=== PATIENT | male | born 1940 | race Hispanic/Latino ===

== ENCOUNTER 2017-05-29 04:42 | Inpatient (IN) | payer MEDICARE ==
--- NOTE | 2017-05-29 04:47 | C.PDOC ---
History Of Present Illness Patient presents to ER via EMS after having 4-5 tonic clonic seizures since 22: 30. Patient did not want to come in; however, his made him come in. Patient received 2ml ativan IV enroute. Patient is post ictal and has no signs of trauma; Hx is as per family. Time Seen by Provider: 05/29/17 04:46 History Per: Family History/Exam Limitations: no limitations Recent Seizure Activity Began: Hours Ago: (22:30) Number Of Seizures: Multiple Length Of Seizures (Duration): Unknown Quality Of Seizure: Generalized Precipitating Factor(s): Other (Not known) Post-ictal Period: Yes Recent travel outside of the [place]: No Past Medical History Reviewed: Historical Data, Nursing Documentation, Vital Signs Vital Signs: Last Vital Signs Temp 98 F 05/29/17 04:52 Pulse 83 05/29/17 06:06 Resp 17 05/29/17 06:06 BP 137/70 05/29/17 06:06 Pulse Ox 98 05/29/17 06:06 - Medical History PMH: No Chronic Diseases Surgical History: No Surg Hx Family History: States: Unknown Family Hx Review Of Systems Review Of Systems: ROS cannot be obtained secondary to pt's inabilty to answer questions. Physical Exam - Physical Exam Appears: Non-toxic, Other (Lethargic) Skin: Warm, Dry Head: Normacephalic Eye(s): bilateral: Normal Inspection Oral Mucosa: Moist Neck: Trachea Midline, Supple Chest: Symmetrical, No Tenderness Cardiovascular: Rhythm Regular, No Murmur Respiratory: No Rales, No Rhonchi, No Wheezing Gastrointestinal/Abdominal: Soft, No Tenderness Back: No CVA Tenderness Extremity: No Tenderness Extremity: Bilateral: Atraumatic Pulses: Left Dorsalis Pedis: Normal, Right Dorsalis Pedis: Normal Neurological/Psych: Other (Post ictal) Gait: Unable To Assess ED Course And Treatment - Laboratory Results Result Diagrams: 05/29/17 05:45 05/29/17 05:45 Disposition Discussed With : Kathy Chan Comment: accepted the pt on her service and took over the care at 6:29AM Doctor Will See Patient In The: Hospital Counseled Patient/Family Regarding: Studies Performed, Diagnosis - Disposition Disposition: HOSPITALIZED Disposition Time: 04:47 Condition: FAIR - POA Present On Arrival: Poor Glycemic Control - Clinical Impression Clinical Impression: Tonic-clonic seizure - Scribe Statement The provider has reviewed the documentation as recorded by the Scribe Dwain Carson All medical record entries made by the Scribe were at my direction and personally dictated by me. I have reviewed the chart and agree that the record accurately reflects my personal performance of the history, physical exam, medical decision making, and the department course for this patient. I have also personally directed, reviewed, and agree with the discharge instructions and disposition. Decision To Admit - Pt Status Changed To: Hospital Disposition Of: Inpatient - Admit Certification Admit to Inpatient:: After my assessment, the patient will require hospitalization for at least two midnights. This is because of the severity of symptoms shown, intensity of services needed, and/or the medical risk in this patient being treated as an outpatient. - InPatient: Physician Admission Certification: I certify that this patient requires 2 or more midnights of care for the following reason:: After my assessment, the patient will require hospitalization for at least two midnights. This is because of the severity of symptoms shown, intensity of services needed, and/or the medical risk in this patient being treated as an outpatient. - . Bed Request Type: Regular Admitting Physician: Kathy Chan Patient Diagnosis: Tonic-clonic seizure
[2017-05-29] MEDS ORDERED: Sodium Chloride 0.9% 1,000 ML IV ONE (05:35)
[2017-05-29 05:48] LABS: BASO # 0.3 K/uL (0.0-0.2); BASO % 1.5 % (0.0-2.0); EOS # 0.3 K/uL (0.0-0.7); EOS % 1.7 % (0.0-4.0); HEMATOCRIT 35.6 % (35.0-51.0); LYMPH # 1.9 K/uL (1.0-4.3); MEAN CORPUSCULAR HEMOGLOBIN 29.7 pg (27.0-31.0); MEAN CORPUSCULAR HGB CONC 33.7 g/dL (33.0-37.0); MEAN PLATELET VOLUME 8.2 fL (7.2-11.7); MONO # 1.8 K/uL (0.0-0.8); MONO % 10.1 % (0.0-10.0); NRBC % 0.4 % (0.0-2.0); RED CELL DISTRIBUTION WIDTH 18.2 % (11.5-14.5); WHITE BLOOD COUNT 17.5 K/uL (4.8-10.8)
[2017-05-29 06:17] LABS: ALB/GLOB RATIO 1.5 (1.0-2.1); BILIRUBIN,TOTAL 0.4 mg/dL (0.2-1.3)
[2017-05-29 06:18] LABS: CALCIUM 8.8 mg/dl (8.6-10.4)
[2017-05-29 07:27] LABS: THYROID STIMULATING HORMONE 3.2 mIU/L (0.46-4.68)
[2017-05-29] MEDS ORDERED: levETIRAcetam 1,000 MG in Sodium Chloride 0.9% 100 ML IVPB SCH (07:30)
[2017-05-29 08:00] LABS: FREE T4 0.93 ng/dL (0.78-2.19)
--- NOTE | 2017-05-29 08:15 | RAD ---
PROCEDURE: CHEST RADIOGRAPH, 1 VIEW HISTORY: Seizure COMPARISON: None available. FINDINGS: LUNGS: Mild to moderate venous congestion with patchy bibasilar airspace opacities and question trace left pleural effusion. PLEURA: No pneumothorax or pleural fluid seen. CARDIOVASCULAR: Cardiomegaly. Calcification at the aortic knob. OSSEOUS STRUCTURES: No significant abnormalities. VISUALIZED UPPER ABDOMEN: Normal. OTHER FINDINGS: None. IMPRESSION: Mild to moderate venous congestion with patchy bibasilar airspace opacities and question trace left pleural effusion.
--- NOTE | 2017-05-29 08:41 | CT ---
PROCEDURE: CT HEAD WITHOUT CONTRAST. HISTORY: seizure activity COMPARISON: None available. TECHNIQUE: Axial computed tomography images were obtained through the head/brain without intravenous contrast. Radiation dose: Total exam DLP = nine hundred seventy mGy-cm. This CT exam was performed using one or more of the following dose reduction techniques: Automated exposure control, adjustment of the mA and/or kV according to patient size, and/or use of iterative reconstruction technique. FINDINGS: HEMORRHAGE: No intracranial hemorrhage. BRAIN: No mass effect or edema. Scattered focal lucencies in the subcortical and periventricular white matter suggestive for chronic microvascular ischemic change. Confluent low attenuation within the right frontal subcortical white matter which may represent encephalomalacia from chronic infarct. Small hypodensities in the bilateral cerebellum suggestive for chronic infarcts. VENTRICLES: Unremarkable. No hydrocephalus. CALVARIUM: Unremarkable. PARANASAL SINUSES: Unremarkable as visualized. No significant inflammatory changes. MASTOID AIR CELLS: Unremarkable as visualized. No inflammatory changes. OTHER FINDINGS: None. IMPRESSION: Chronic microvascular ischemic change. 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 If focal neurologic deficit persists, consider MRI.
[2017-05-29] MEDS ORDERED: LEVETIRACETAM 1000 MG PO SCH (10:00)
[2017-05-29] MEDS ORDERED: cefTRIAXone 2 GM IN NS 2 GM/100 ML BAG IVPB SCH (11:00)
[2017-05-29 11:14] LABS: RBC URINE 1 /hpf (0-3); URINE BACTERIA RARE (<OCC); URINE BILIRUBIN NEGATIVE (NEGATIVE); URINE BLOOD 2+ (NEGATIVE); URINE COLOR Straw (YELLOW); URINE GLUCOSE (UA) NORMAL (Normal); URINE KETONE NEGATIVE (NEGATIVE); URINE LEUKOCYTE ESTERASE NEG Leu/uL (Negative); URINE PROTEIN 1+ mg/dL (NEGATIVE); URINE URIC ACID CRYSTALS FEW /hpf (<OCC); URINE UROBILINOGEN NORMAL mg/dL (0.2-1.0); WBC URINE 1 /hpf (0-5)
[2017-05-29] MEDS ORDERED: Vancomycin 1 gm/NS 200 ml 1 GM/200 ML BAG IVPB ONE (13:00)
--- NOTE | 2017-05-29 16:09 | CP.PCM.HP ---
History of Present Illness - History of Present Illness History of Present Illness: pt admited for multiple clonic tonic seizers Present on Admission - Present on Admission Any Indicators Present on Admission: No Review of Systems - Review of Systems Systems not reviewed;Unavailable: Acuity of Condition - Constitutional Constitutional: Daytime Sleepiness - EENT Eyes: As Per HPI Ears: As Per HPI Nose/Mouth/Throat: As Per HPI - Cardiovascular Cardiovascular: As Per HPI - Respiratory Respiratory: As Per HPI, Dyspnea on Exertion - Gastrointestinal Gastrointestinal: As Per HPI - Genitourinary Genitourinary: As Per HPI - Reproductive: Male Reproductive:Male: As Per HPI - Musculoskeletal Musculoskeletal: As Per HPI - Integumentary Integumentary: As Per HPI - Neurological Neurological: Other Past Patient History - Infectious Disease Hx of Infectious Diseases: None - Past Medical History & Family History Past Medical History?: Yes - Past Social History Smoking Status: Never Smoked - CARDIAC Hx Cardiac Disorders: Yes Hx Hypercholesterolemia: Yes Hx Hypertension: Yes - PULMONARY Hx Respiratory Disorders: No - NEUROLOGICAL Hx Neurological Disorder: Yes Hx Seizures: Yes - HEENT Hx HEENT Problems: No - RENAL Hx Chronic Kidney Disease: No - ENDOCRINE/METABOLIC Hx Endocrine Disorders: No - HEMATOLOGICAL/ONCOLOGICAL Hx Blood Disorders: No - INTEGUMENTARY Hx Dermatological Problems: No - MUSCULOSKELETAL/RHEUMATOLOGICAL Hx Musculoskeletal Disorders: No Hx Falls: No - GASTROINTESTINAL Hx Gastrointestinal Disorders: No - GENITOURINARY/GYNECOLOGICAL Hx Genitourinary Disorders: No - PSYCHIATRIC Hx Psychophysiologic Disorder: No Hx Substance Use: No - SURGICAL HISTORY Hx Surgeries: No - ANESTHESIA Hx Anesthesia: No Meds Allergies/Adverse Reactions: Allergies Allergy/AdvReac Type Severity Reaction Status Date / Time No Known Allergies Allergy Unverified 05/29/17 04:49 Physical Exam - Constitutional Appears: Non-toxic - Head Exam Head Exam: NORMAL INSPECTION - Eye Exam Eye Exam: Normal appearance Pupil Exam: NORMAL ACCOMODATION - Neck Exam Neck exam: Positive for: Full Rom - Respiratory Exam Respiratory Exam: Clear to Auscultation Bilateral, NORMAL BREATHING PATTERN - Cardiovascular Exam Cardiovascular Exam: REGULAR RHYTHM - GI/Abdominal Exam GI & Abdominal Exam: Soft - Rectal Exam Rectal Exam: NORMAL INSPECTION Results - Vital Signs Recent Vital Signs: Last Vital Signs Temp 98.5 F 05/29/17 15:20 Pulse 74 05/29/17 15:20 Resp 20 05/29/17 15:20 BP 124/71 05/29/17 15:20 Pulse Ox 97 05/29/17 15:20 - Labs Result Diagrams: 05/29/17 05:45 05/29/17 05:45 Labs: Laboratory Results - last 24 hr 05/29/17 05/29/17 05/29/17 06:37 07:15 10:52 Total Creatine Kinase 598 H CK-MB (Mass) 10.9 H Troponin I, Quant 0.0230 NT-Pro-B Natriuret Pep 275 Free T4 0.93 TSH 3rd Generation 3.20 Urine Color Straw Urine Clarity Hazy Urine pH 5.0 Ur Specific [place] 1.011 Urine Protein 1+ H Urine Glucose (UA) Normal Urine Ketones Negative Urine Blood 2+ H Urine Nitrate Negative Urine Bilirubin Negative Urine Urobilinogen Normal Ur Leukocyte Esterase Neg Urine WBC (Auto) 1 Urine RBC (Auto) 1 Uric Acid Crystals Few H Urine Bacteria Rare Assessment & Plan - Assessment and Plan (Free Text) Assessment: ac seizers lecocytosis dm Decision To Admit - Admit Certification Admit to Inpatient:: diann and consutation - . Bed Request Type: Telemetry
--- NOTE | 2017-05-29 17:09 | CON ---
DATE: 05/29/2017 ATTENDING PHYSICIAN: Dr. Kathy Chan. REASON FOR CONSULTATION: Recurrent seizures. HISTORY OF PRESENT ILLNESS: The patient is a 76-year-old right-handed gentleman with past medical history of seizure disorder, hyperlipidemia, hypertension. The patient was admitted because of recurrent episodes of seizure, generalized tonic-clonic seizure. The patient had at least 4 seizures prior to admission and the patient has been on Keppra 500 mg every 12 hours and the patient's last seizure was few months ago. The patient has no recollection when was prior seizure. The patient does not recall who is his neurologist is. The patient states that he is at [facility]. The patient is now able to follow commands, unable to give detailed history, history is taken from the chart. At this admission, the patient was given initially 2 mg of Ativan and no recurrent seizures. The patient was found to have high white blood cell 17.5. PAST MEDICAL HISTORY: Hypertension, hyperlipidemia, seizure disorder. PAST SURGICAL HISTORY: The patient denies major surgeries. FAMILY HISTORY: Noncontributory. MEDICATIONS: Lorazepam p.r.n., rosuvastatin, Keppra 500 mg b.i.d., amlodipine, ceftriaxone. REVIEW OF SYSTEMS: As per H and P and ER note reviewed. PHYSICAL EXAMINATION: VITAL SIGNS: Her blood pressure 155/86, pulse 86, respirations 20, temperature 98.2 and temperature at admission was 98. MENTAL STATUS EXAMINATION: The patient is alert, awake, and oriented to time and place and partially to person. Slow mental processing, decreased attention span, short-term memory, able to follow 2-step commands, unable to follow 3-step commands. CRANIAL NERVES: Pupils 3 mm bilaterally active. No facial asymmetry. No field defect. No nystagmus. No double vision. accessory nerve intact. Tongue midline. Gag intact. MOTOR: Normal tone in upper and lower extremities. No facial drift, no tremors. Right upper extremity, elbow, clipper automatic 5/5. Lower extremities; hip flexion, knee flexion and extension, ankle 5/5. Deep tendon reflexes 1 in upper extremities, absent in bilateral lower extremities. Plantar flexion on both sides. SENSORY: Pinprick, light touch, position intact. Coordination and [id number] intact. Romberg deferred. MRI of the brain consistent with periventricular white matter disease secondary to small vessel ischemic changes in addition to chronic infarct in the right frontal subcortical white matter and bilateral cerebellum. LABORATORY DATA: White blood cells 17.5, red blood cells 4, hemoglobin 12, hematocrit 35.6, neutrophil 75%, lymphocyte 11, mono 10, eosinophil 1.7. Sodium 142, potassium 5, chloride 106, carbon dioxide 21, anion gap 20, BUN 25, creatinine 1.4. Glomerular filtration rate 60. Her glucose 188. Creatinine kinase 598 secondary to seizures. Urinalysis; urine protein 1+, urine blood 2+, uric acid crystals few, white blood cells 1, red blood cells 1. IMPRESSION: The patient has recurrent breakthrough seizure, most likely secondary to sepsis. Lab workup still in progress. Culture and sensitivity are pending. At this point, the patient is known with history of seizures. The patient had MRI of the brain a year ago. The CAT scan did not reveal acute findings. After reviewing patient's CAT scan of the brain, the patient has frontal infarct on the right side old, this is most likely underlying source for the patient's history of seizure . I will increase Keppra to 750 mg q. 12 hours. Septic workup in progress. Dr. Whitley, Infectious Disease is on the case. Thank you for the consultation and we will follow up with you. Jon Stone MD MTDJaylyn
[2017-05-29] MEDS: cefTRIAXone 2 GM in Sodium Chloride 0.9% 100 ML IVPB SCH (22:52)
[2017-05-30 08:09] LABS: HEMATOCRIT 34.8 % (35.0-51.0); MEAN CELL VOLUME 87.4 fL (80.0-94.0); MEAN CORPUSCULAR HEMOGLOBIN 29.5 pg (27.0-31.0); MEAN CORPUSCULAR HGB CONC 33.7 g/dL (33.0-37.0); MEAN PLATELET VOLUME 8.3 fL (7.2-11.7); RED CELL DISTRIBUTION WIDTH 18.2 % (11.5-14.5); WHITE BLOOD COUNT 13.8 K/uL (4.8-10.8)
[2017-05-30 08:38] LABS: FREE T4 0.83 ng/dL (0.78-2.19)
[2017-05-30 08:52] LABS: THYROID STIMULATING HORMONE 0.98 mIU/L (0.46-4.68)
--- NOTE | 2017-05-30 11:15 | CP.PCM.PN ---
Subjective - Date & Time of Evaluation Date of Evaluation: 05/30/17 Time of Evaluation: 11:13 - Subjective Subjective: feels beter today Objective - Vital Signs/Intake and Output Vital Signs (last 24 hours): Temp Pulse Resp BP Pulse Ox 98.4 F 63 20 123/71 96 05/30/17 08:25 05/30/17 08:25 05/30/17 08:25 05/30/17 08:25 05/30/17 08:25 Intake and Output: 05/30/17 05/30/17 06:59 18:59 Intake Total 830 Output Total 700 Balance 130 - Medications Medications: Current Medications Amlodipine Besylate (Norvasc) 10 mg PO DAILY [facility] Last Admin: 05/30/17 10:00 Dose: 10 mg Furosemide (Lasix) 40 mg IVP DAILY [facility] Ceftriaxone Sodium 2 gm/ (Sodium Chloride) 100 mls @ 200 mls/hr IVPB Q12H [facility] Last Admin: 05/29/17 22:52 Dose: 200 mls/hr Levetiracetam (Keppra) 750 mg PO BID [facility] Last Admin: 05/30/17 10:00 Dose: 750 mg Lorazepam (Ativan) 1 mg IVP Q6H PRN PRN Reason: Anxiety Metformin HCl (Glucophage Xr) 500 mg PO DAILY [facility] Last Admin: 05/30/17 10:00 Dose: 500 mg Rosuvastatin Calcium (Crestor) 5 mg PO [facility] Last Admin: 05/29/17 21:28 Dose: 5 mg Spironolactone (Aldactone) 25 mg PO DAILY [facility] - Labs Labs: 05/30/17 08:00 - Constitutional Appears: Non-toxic - Head Exam Head Exam: NORMAL INSPECTION - Eye Exam Eye Exam: Normal appearance Pupil Exam: NORMAL ACCOMODATION - ENT Exam ENT Exam: Mucous Membranes Moist, Normal Exam - Neck Exam Neck Exam: Normal Inspection - Respiratory Exam Respiratory Exam: Decreased Breath Sounds - Cardiovascular Exam Cardiovascular Exam: REGULAR RHYTHM - GI/Abdominal Exam GI & Abdominal Exam: Normal Bowel Sounds - Rectal Exam Rectal Exam: NORMAL INSPECTION - Exam Exam: NORMAL INSPECTION - Extremities Exam Extremities Exam: Normal Inspection - Back Exam Back Exam: NORMAL INSPECTION - Neurological Exam Neurological Exam: Normal Gait - Psychiatric Exam Psychiatric exam: Normal Affect - Skin Skin Exam: Normal Color Assessment and Plan - Assessment and Plan (Free Text) Assessment: chest congesion posible chf s/p seizers obesith pre diabetic abn ekg Plan: as per orders
[2017-05-30] MEDS: cefTRIAXone 2 GM in Sodium Chloride 0.9% 100 ML IVPB SCH ×2 (12:31→18:26)
--- NOTE | 2017-05-30 13:46 | CP.PCM.CON ---
History of Present Illness - History of Present Illness History of Present Illness: CC: Seizure HPI: 76 year old man with chronic medical conditions 1. Epilepsy 2. HTN 3. Dyslipidemia Came to [facility] for for seizures. Denies any further seizures while in hospital. Review of Systems - Review of Systems All systems: reviewed and no additional remarkable complaints except Past Patient History - Infectious Disease Hx of Infectious Diseases: None - Past Medical History & Family History Past Medical History?: Yes - Past Social History Smoking Status: Never Smoked - CARDIAC Hx Hypercholesterolemia: Yes Hx Hypertension: Yes - PULMONARY Hx Respiratory Disorders: No - NEUROLOGICAL Hx Neurological Disorder: Yes Hx Seizures: Yes - HEENT Hx HEENT Problems: No - RENAL Hx Chronic Kidney Disease: No - ENDOCRINE/METABOLIC Hx Endocrine Disorders: No - HEMATOLOGICAL/ONCOLOGICAL Hx Blood Disorders: No - INTEGUMENTARY Hx Dermatological Problems: No - MUSCULOSKELETAL/RHEUMATOLOGICAL Hx Musculoskeletal Disorders: No Hx Falls: No - GASTROINTESTINAL Hx Gastrointestinal Disorders: No - GENITOURINARY/GYNECOLOGICAL Hx Genitourinary Disorders: No - PSYCHIATRIC Hx Psychophysiologic Disorder: No Hx Substance Use: No - SURGICAL HISTORY Hx Surgeries: No - ANESTHESIA Hx Anesthesia: No Meds Allergies/Adverse Reactions: Allergies Allergy/AdvReac Type Severity Reaction Status Date / Time No Known Allergies Allergy Unverified 05/29/17 04:49 - Medications Medications: Current Medications Amlodipine Besylate (Norvasc) 10 mg PO DAILY [facility] Last Admin: 05/30/17 10:00 Dose: 10 mg Furosemide (Lasix) 40 mg IVP DAILY [facility] Last Admin: 05/30/17 12:29 Dose: 40 mg Ceftriaxone Sodium 2 gm/ (Sodium Chloride) 100 mls @ 200 mls/hr IVPB Q12H [facility] Last Admin: 05/30/17 12:31 Dose: 200 mls/hr Levetiracetam (Keppra) 750 mg PO BID [facility] Last Admin: 05/30/17 10:00 Dose: 750 mg Lorazepam (Ativan) 1 mg IVP Q6H PRN PRN Reason: Anxiety Metformin HCl (Glucophage Xr) 500 mg PO DAILY [facility] Last Admin: 05/30/17 10:00 Dose: 500 mg Rosuvastatin Calcium (Crestor) 5 mg PO HS [facility] Last Admin: 05/29/17 21:28 Dose: 5 mg Spironolactone (Aldactone) 25 mg PO DAILY [facility] Physical Exam - Constitutional Appears: Well, Non-toxic - Eye Exam Eye Exam: PERRL. absent: Scleral icterus - ENT Exam ENT Exam: Mucous Membranes Moist, Normal External Ear Exam - Neck Exam Neck exam: Positive for: Full Rom. Negative for: Lymphadenopathy - Respiratory Exam Respiratory Exam: Clear to Auscultation Bilateral, NORMAL BREATHING PATTERN - Cardiovascular Exam Cardiovascular Exam: REGULAR RHYTHM, +S1, +S2. absent: JVD - GI/Abdominal Exam GI & Abdominal Exam: Normal Bowel Sounds. absent: Organomegaly - Extremities Exam Extremities exam: Negative for: calf tenderness, pedal edema - Neurological Exam Neurological exam: CN II-XII Intact, Oriented x3 - Psychiatric Exam Psychiatric exam: Normal Affect, Normal Mood Results - Vital Signs Recent Vital Signs: Last Vital Signs Temp 98.4 F 05/30/17 08:25 Pulse 64 05/30/17 10:57 Resp 20 05/30/17 08:25 BP 137/71 05/30/17 12:29 Pulse Ox 98 05/30/17 10:57 - Labs Result Diagrams: 05/30/17 08:00 05/29/17 05:45 Labs: Laboratory Results - last 24 hr 05/29/17 05/29/17 05/30/17 16:45 21:01 06:22 WBC RBC Hgb Hct MCV MCH MCHC RDW Plt Count MPV POC Glucose (mg/dL) 91 115 H 126 H Free T4 TSH 3rd Generation 05/30/17 05/30/17 05/30/17 08:00 08:00 11:25 WBC 13.8 H RBC 3.98 L Hgb 11.7 L Hct 34.8 L MCV 87.4 MCH 29.5 MCHC 33.7 RDW 18.2 H Plt Count 467 H MPV 8.3 POC Glucose (mg/dL) 109 Free T4 0.83 TSH 3rd Generation 0.98 - EKG Data EKG Interpreted by: Myself EKG shows normal: Sinus rhythm - Imaging and Cardiology Chest x-ray Status: Image reviewed by me (No infiltrates or effusions ) Assessment & Plan - Assessment and Plan (Free Text) Assessment: 76 year old man with seizure rule out epilepsy now on keppra no seizures in the hospital Chronic diastolic CHF now stable no evidence of rales on my exam HTN is chronic and stable on furosemide and Norvasc ASHD continue crestor to reduce risk of CO DM on metformin He can follow up in my office in 1-2 weeks.
--- NOTE | 2017-05-30 15:06 | CP.PCM.CON ---
History of Present Illness - History of Present Illness History of Present Illness: Patient presented to ER via EMS after having 4-5 tonic clonic seizures . Patient did not want to come in; however, his made him come in. Patient received 2ml ativan IV enroute upon arrival on floor I was contacted by nurse for leukocytosis/ AMS and possible fevers was started on empiric antibiotics PMH - as per PMD DM SEIZURES SH- NON SMOKER DENIES ETOH FH - N/C NKA Review of Systems - Constitutional Constitutional: As Per HPI - EENT Eyes: absent: As Per HPI, Blind Spots, Blurred Vision, Change in Vision, Decreased Night Vision, Diplopia, Discharge, Dry Eye, Exophthalmos, Floaters, Irritation, Itchy Eyes, Loss of Peripheral Vision, Pain, Photophobia, Requires Corrective Lenses, Sees Flashes, Spots in Vision, Tunnel Vision, Other Visual Disturbances, Loss of Vision, Other Ears: absent: As Per HPI, Decreased Hearing, Ear Discharge, Ear Pain, Tinnitus, Abnormal Hearing, Disequilibrium, Dizziness, Other Nose/Mouth/Throat: absent: As Per HPI, Epistaxis, Nasal Congestion, Nasal Discharge, Nasal Obstruction, Nasal Trauma, Nose Pain, Post Nasal Drip, Sinus Pain, Sinus Pressure, Bleeding Gums, Change in Voice, Dental Pain, Dry Mouth, Dysphagia, Halitosis, Hoarsness, Lip Swelling, Mouth Lesions, Mouth Pain, Odynophagia, Sore Throat, Throat Swelling, Tongue Swelling, Facial Pain, Neck Pain, Neck Mass, Other - Cardiovascular Cardiovascular: absent: As Per HPI, Acrocyanosis, Chest Pain, Chest Pain at Rest , Chest Pain with Activity, Claudication, Diaphoresis, Dyspnea, Dyspnea on Exertion, Edema, Irregular Heart Rhythm, Pain Radiating to Arm/Neck/Jaw, Leg Edema, Leg Ulcers, Lightheadedness, Orthopnea, Palpitations, Paroxysmal Nocturnal Dyspnea, Pedal Edema, Radiating Pain, Rapid Heart Rate, Slow Heart Rate, Syncope, Other - Respiratory Respiratory: absent: As Per HPI, Cough, Dyspnea, Hemoptysis, Dyspnea on Exertion , Wheezing, Snoring, Stridor, Pain on Inspiration, Chest Congestion, Excessive Mucous Production, Change in Mucous Color, Pain with Coughing, Other - Gastrointestinal Gastrointestinal: absent: As Per HPI, Abdominal Pain, Belching, Bloating, Change in Bowel Habits, Change in Stool Character, Coffee Ground Emesis, Constipation, Cramping, Diarrhea, Dyspepsia, Dysphagia, Early Satiety, Excessive Flatus, Fecal Incontinence, Heartburn, Hematemesis, Hematochezia, Loose Stools, Melena, Nausea, Odynophagia, Temesmus, Vomiting, Other - Genitourinary Genitourinary: absent: As Per HPI, Change in Urinary Stream, Difficulty Urinating, Dysuria, Flank Pain, Hematuria, Pyuria, Nocturia, Urinary Incontinence, Urinary Frequency, Urinary Hesitance, Urinary Urgency, Voiding Freq/Small Amts, Freq UTI, Hx Renal/Bladder Calculi, Hx /Renal Surgery, Bladder Distension, Other - Musculoskeletal Musculoskeletal: absent: As Per HPI, Abnormal Gait, Arthralgias, Atrophy, Back Pain, Deformity, Joint Swelling, Limited Range of Motion, Loss of Height, Muscle Cramps, Muscle Weakness, Myalgias, Neck Pain, Numbness, Radiating Pain into Limb, Stiffness, Tingling, Other - Integumentary Integumentary: absent: As Per HPI, Acne, Alopecia, Bleeding Lesions, Change in Hair, Change in Nails, Change in Pigmentation, Changing Lesions, Dry Skin, Erythema, Furuncle, Hirsutism, Lesions, New Lesions, Non-Healing Lesions, Photosensitivity, Pruritus, Rash, Skin Pain, Skin Ulcer, Sores, Striae, Swelling , Unusual Bruising, Wounds, Jaundice, Other - Neurological Neurological: As Per HPI - Psychiatric Psychiatric: absent: As Per HPI, Abnormal Sleep Pattern, Anhedonia, Anxiety, Auditory Hallucinations, Behavioral Changes, Change in Appetite, Change in Libido, Confusion, Depression, Difficulty Concentrating, Hallucinations, Homicidal Ideation, Hopelessness, Irritability, Memory Loss, Mood Swings, Panic Attacks, Paranoia, Suicidal Ideation, Visual Hallucinations, Tactile Hallucinations, Other - Endocrine Endocrine: absent: As Per HPI, Change in Body Appearance, Change in Libido, Cold Intolorance, Deepening of Voice, Excessive Sweating, Fatigue, Flushing, Heat Intolorance, Increase in Ring/Shoe/Hat Size, Palpitations, Polydipsia, Polyphagia, Polyuria, Other - Hematologic/Lymphatic Hematologic: absent: As Per HPI, Easy Bleeding, Easy Bruising, Lymphadenopathy, Other Past Patient History - Infectious Disease Hx of Infectious Diseases: None - Past Medical History & Family History Past Medical History?: Yes - Past Social History Smoking Status: Never Smoked - CARDIAC Hx Hypercholesterolemia: Yes Hx Hypertension: Yes - PULMONARY Hx Respiratory Disorders: No - NEUROLOGICAL Hx Neurological Disorder: Yes Hx Seizures: Yes - HEENT Hx HEENT Problems: No - RENAL Hx Chronic Kidney Disease: No - ENDOCRINE/METABOLIC Hx Endocrine Disorders: No - HEMATOLOGICAL/ONCOLOGICAL Hx Blood Disorders: No - INTEGUMENTARY Hx Dermatological Problems: No - MUSCULOSKELETAL/RHEUMATOLOGICAL Hx Musculoskeletal Disorders: No Hx Falls: No - GASTROINTESTINAL Hx Gastrointestinal Disorders: No - GENITOURINARY/GYNECOLOGICAL Hx Genitourinary Disorders: No - PSYCHIATRIC Hx Psychophysiologic Disorder: No Hx Substance Use: No - SURGICAL HISTORY Hx Surgeries: No - ANESTHESIA Hx Anesthesia: No Meds Allergies/Adverse Reactions: Allergies Allergy/AdvReac Type Severity Reaction Status Date / Time No Known Allergies Allergy Unverified 05/29/17 04:49 - Medications Medications: Current Medications Amlodipine Besylate (Norvasc) 10 mg PO DAILY [facility] Last Admin: 05/30/17 10:00 Dose: 10 mg Furosemide (Lasix) 40 mg IVP DAILY [facility] Last Admin: 05/30/17 12:29 Dose: 40 mg Ceftriaxone Sodium 2 gm/ (Sodium Chloride) 100 mls @ 200 mls/hr IVPB Q12H [facility] Last Admin: 05/30/17 12:31 Dose: 200 mls/hr Levetiracetam (Keppra) 750 mg PO BID [facility] Last Admin: 05/30/17 10:00 Dose: 750 mg Lorazepam (Ativan) 1 mg IVP Q6H PRN PRN Reason: Anxiety Metformin HCl (Glucophage Xr) 500 mg PO DAILY [facility] Last Admin: 05/30/17 10:00 Dose: 500 mg Rosuvastatin Calcium (Crestor) 5 mg PO [facility] Last Admin: 05/29/17 21:28 Dose: 5 mg Spironolactone (Aldactone) 25 mg PO DAILY [facility] Physical Exam - Constitutional Appears: Non-toxic, Chronically Ill - Head Exam Head Exam: NORMOCEPHALIC - Eye Exam Eye Exam: PERRL. absent: Scleral icterus - ENT Exam ENT Exam: Mucous Membranes Dry, Normal External Ear Exam - Neck Exam Neck exam: Negative for: Lymphadenopathy, Thyromegaly - Respiratory Exam Respiratory Exam: Decreased Breath Sounds, Clear to Auscultation Bilateral - Cardiovascular Exam Cardiovascular Exam: REGULAR RHYTHM, +S1, +S2 - GI/Abdominal Exam GI & Abdominal Exam: Diminished Bowel Sounds, Soft. absent: Tenderness - Rectal Exam Rectal Exam: Deferred - Exam Exam: NORMAL INSPECTION - Extremities Exam Extremities exam: Positive for: pedal pulses present. Negative for: calf tenderness, pedal edema, tenderness - Back Exam Back exam: absent: CVA tenderness (L), CVA tenderness (R) - Neurological Exam Neurological exam: Alert, CN II-XII Intact, Oriented x3, Reflexes Normal - Psychiatric Exam Psychiatric exam: Normal Mood - Skin Skin Exam: Dry, Intact Results - Vital Signs Recent Vital Signs: Last Vital Signs Temp 98.4 F 05/30/17 08:25 Pulse 64 05/30/17 10:57 Resp 20 05/30/17 08:25 BP 137/71 05/30/17 12:29 Pulse Ox 98 05/30/17 10:57 - Labs Result Diagrams: 05/30/17 08:00 05/29/17 05:45 Labs: Laboratory Results - last 24 hr 05/29/17 05/29/17 05/30/17 16:45 21:01 06:22 WBC RBC Hgb Hct MCV MCH MCHC RDW Plt Count MPV POC Glucose (mg/dL) 91 115 H 126 H Free T4 TSH 3rd Generation 05/30/17 05/30/17 05/30/17 08:00 08:00 11:25 WBC 13.8 H RBC 3.98 L Hgb 11.7 L Hct 34.8 L MCV 87.4 MCH 29.5 MCHC 33.7 RDW 18.2 H Plt Count 467 H MPV 8.3 POC Glucose (mg/dL) 109 Free T4 0.83 TSH 3rd Generation 0.98 Assessment & Plan (1) Tonic-clonic seizure Status: Acute - Assessment and Plan (Free Text) Assessment: R/O INFECTION 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
[2017-05-30] MEDS ORDERED: cefTRIAXone 2 GM IN NS 2 GM/100 ML BAG IVPB SCH (17:00)
--- NOTE | 2017-05-30 22:13 | PN ---
REFERRING PHYSICIAN: Dr. Chan. The patient is awake, alert , has no new complaint today. No seizures. The patient states this is my baseline, today I feel significantly better than yesterday. The patient is alert, awake, oriented x3. Normal naming, repetition and comprehension. No agnosia, no apraxia. Able to follow 3-step commands. No dysarthria, dysphagia. PHYSICAL EXAMINATION: VITAL SIGNS: Blood pressure 138/71, pulse 64, respirations 18, temperature afebrile. MENTAL STATE: The patient is as mentioned above. CRANIAL NERVES: Pupils are symmetric and reactive. No facial asymmetry. No field defect. There are no changes basically on the patient.s physical exam since yesterday. Mental state improved. IMPRESSION: Breakthrough seizures. Continue Keppra 750 mg q. 12 hours and neuro-mcrae no further work up recommended. The patient is known with history of cerebrovascular accidents. No further workup, EEGs or MRI needed at this point. Thank you for the consultation. I will sign off the case. If needed, Dr. Maxwell will be on tomorrow, can be called. Jon Stone MD
[2017-05-31 00:47] VITALS: RESP 20
[2017-05-31 07:39] LABS: BASO # 0.3 K/uL (0.0-0.2); BASO % 2.2 % (0.0-2.0); EOS # 0.3 K/uL (0.0-0.7); EOS % 2.1 % (0.0-4.0); HEMATOCRIT 33.8 % (35.0-51.0); LYMPH # 2.3 K/uL (1.0-4.3); LYMPH % 18.3 % (20.0-40.0); MEAN CORPUSCULAR HGB CONC 34.1 g/dL (33.0-37.0); MEAN PLATELET VOLUME 8.5 fL (7.2-11.7); MONO # 1.4 K/uL (0.0-0.8); MONO % 10.7 % (0.0-10.0); NRBC % 0.1 % (0.0-2.0); RED CELL DISTRIBUTION WIDTH 18.3 % (11.5-14.5); WHITE BLOOD COUNT 12.7 K/uL (4.8-10.8)
[2017-05-31 08:10] LABS: POTASSIUM 4.3 mmol/L (3.6-5.2)
[2017-05-31 08:14] LABS: CALCIUM 8.6 mg/dl (8.6-10.4)
--- NOTE | 2017-05-31 08:46 | PN ---
NEUROLOGICAL PROBLEM: Recurrent seizures. SUBJECTIVE: The patient was seen by Dr. Stone over the weekend and workup being done. From the history, as per his , he has been taking Keppra 1000 mg twice a day and seizure frequency is at least once a year. By knowing that, the patient should be back on 1000 mg twice a day. For the breakthrough seizures, the patient should be sleeping on time, no sleep deprivation and not too much of carbohydrates. Any other infection should be treated appropriately. The patient is encouraged to drink water. The patient is medically stable. The patient can be followed by neurologist as an outpatient for his seizure. Diego Maxwell MD
[2017-05-31 16:06] VITALS: BP 137/79; PULSE 72; TEMP 98.2; O2SAT 96
--- NOTE | 2017-05-31 17:00 | CP.PCM.DIS ---
Provider - Provider Date of Admission: 05/29/17 06:30 Attending physician: Kathy Chan MD Primary care physician: Non [facility] Provider Time Spent in preparation of Discharge (in minutes): 30 Hospital Course - Lab Results Lab Results: Micro Results 05/29/17 11:53 Blood-Venous Blood Culture - Preliminary NO GROWTH AFTER 48 HOURS 05/29/17 10:00 Blood-Venous Blood Culture - Preliminary NO GROWTH AFTER 48 HOURS 05/29/17 Unknown Urine Urine Culture - Final No Growth (<1,000 CFU/ML) Most Recent Lab Values WBC 12.7 K/uL (4.8-10.8) H 05/31/17 07:20 RBC 3.84 Mil/uL (4.40-5.90) L 05/31/17 07:20 Hgb 11.5 g/dL (12.0-18.0) L 05/31/17 07:20 Hct 33.8 % (35.0-51.0) L 05/31/17 07:20 MCV 88.0 fL (80.0-94.0) 05/31/17 07:20 MCH 30.0 pg (27.0-31.0) 05/31/17 07:20 MCHC 34.1 g/dL (33.0-37.0) 05/31/17 07:20 RDW 18.3 % (11.5-14.5) H 05/31/17 07:20 Plt Count 432 K/uL (130-400) H 05/31/17 07:20 MPV 8.5 fL (7.2-11.7) 05/31/17 07:20 Neut % (Auto) 66.7 % (50.0-75.0) 05/31/17 07:20 Lymph % (Auto) 18.3 % (20.0-40.0) L 05/31/17 07:20 [place] % (Auto) 10.7 % (0.0-10.0) H 05/31/17 07:20 Eos % (Auto) 2.1 % (0.0-4.0) 05/31/17 07:20 Baso % (Auto) 2.2 % (0.0-2.0) H 05/31/17 07:20 Neut # 8.5 K/uL (1.8-7.0) H 05/31/17 07:20 Lymph # 2.3 K/uL (1.0-4.3) 05/31/17 07:20 [place]att # 1.4 K/uL (0.0-0.8) H 05/31/17 07:20 Eos # 0.3 K/uL (0.0-0.7) 05/31/17 07:20 Baso # 0.3 K/uL (0.0-0.2) H 05/31/17 07:20 Sodium 140 mmol/L (132-148) 05/31/17 07:20 Potassium 4.3 mmol/L (3.6-5.2) 05/31/17 07:20 Chloride 102 mmol/L (98-107) 05/31/17 07:20 Carbon Dioxide 24 mmol/L (22-30) 05/31/17 07:20 Anion Gap 19 (10-20) 05/31/17 07:20 BUN 28 mg/dL (9-20) H 05/31/17 07:20 Creatinine 1.8 MG/DL (0.8-1.5) H 05/31/17 07:20 Est GFR ( Amer) 45 05/31/17 07:20 Est GFR (Non-Af Amer) 37 05/31/17 07:20 POC Glucose (mg/dL) 115 mg/dL (65-110) H 05/31/17 16:16 Random Glucose 108 mg/dL (75-110) 05/31/17 07:20 Hemoglobin A1c 5.8 % (4.2-6.5) 05/30/17 08:00 Calcium 8.6 mg/dl (8.6-10.4) 05/31/17 07:20 Total Bilirubin 0.4 mg/dL (0.2-1.3) 05/29/17 05:45 AST 54 U/L (17-59) 05/29/17 05:45 ALT 45 U/L (21-72) 05/29/17 05:45 Alkaline Phosphatase 79 U/L (38-126) 05/29/17 05:45 Total Creatine Kinase 598 U/L (55-170) H 05/29/17 06:37 CK-MB (Mass) 10.9 ng/mL (0.0-3.38) H 05/29/17 06:37 Troponin I, Quant 0.0230 ng/mL (0.00-0.120) 05/29/17 06:37 NT-Pro-B Natriuret Pep 168 pg/mL (0-900) 05/31/17 07:20 Total Protein 7.0 g/dL (6.3-8.3) 05/29/17 05:45 Albumin 4.2 g/dL (3.5-5.0) 05/29/17 05:45 Globulin 2.8 gm/dL (2.2-3.9) 05/29/17 05:45 Albumin/Globulin Ratio 1.5 (1.0-2.1) 05/29/17 05:45 Triglycerides 220 mg/dL (0-149) H 05/31/17 07:20 Cholesterol 129 mg/dL (0-199) 05/31/17 07:20 LDL Cholesterol Direct 55 mg/dL (0-129) 05/31/17 07:20 HDL Cholesterol 22 mg/dL (30-70) L 05/31/17 07:20 Free T4 0.83 ng/dL (0.78-2.19) 05/30/17 08:00 TSH 3rd Generation 0.98 mIU/L (0.46-4.68) 05/30/17 08:00 Urine Color Straw (YELLOW) 05/29/17 10:52 Urine Clarity Hazy (Clear) 05/29/17 10:52 Urine pH 5.0 (5.0-8.0) 05/29/17 10:52 Ur Specific [place] 1.011 (1.003-1.030) 05/29/17 10:52 Urine Protein 1+ mg/dL (NEGATIVE) H 05/29/17 10:52 Urine Glucose (UA) Normal mg/dL (Normal) 05/29/17 10:52 Urine Ketones Negative mg/dL (NEGATIVE) 05/29/17 10:52 Urine Blood 2+ (NEGATIVE) H 05/29/17 10:52 Urine Nitrate Negative (NEGATIVE) 05/29/17 10:52 Urine Bilirubin Negative (NEGATIVE) 05/29/17 10:52 Urine Urobilinogen Normal mg/dL (0.2-1.0) 05/29/17 10:52 Ur Leukocyte Esterase Neg Patricia/uL (Negative) 05/29/17 10:52 Urine WBC (Auto) 1 /hpf (0-5) 05/29/17 10:52 Urine RBC (Auto) 1 /hpf (0-3) 05/29/17 10:52 Uric Acid Crystals Few /hpf (<OCC) H 05/29/17 10:52 Urine Bacteria Rare (<OCC) 05/29/17 10:52 Discharge Exam - Head Exam Head Exam: NORMOCEPHALIC Discharge Plan - Discharge Medications Prescriptions: Cephalexin [cephalexin] 500 mg PO BID #14 cap Furosemide [Lasix] 20 mg PO DAILY #20 tablet - Follow Up Plan Condition: FAIR Disposition: HOME/ ROUTINE Instructions: Cephalexin (By mouth), Furosemide (By mouth), Levetiracetam (By mouth), Heart Healthy Diet (DC), Recurrent Seizures in Adults (DC), New-Onset Seizure in Adults (DC) Additional Instructions: f/u with PMD office in 3-5 day s f/u with neurologist office in 1 week f/u with Dr. Angeles office in 3 weeks - call for appointment Referrals: Nitish Angeles MD [Staff Provider] - Kathy Chan MD [Staff Provider] - Diego Maxwell MD [Staff Provider] - Non [facility] Provider, [Primary Care Provider] -
--- NOTE | 2017-05-31 17:05 | CP.PCM.PN ---
Subjective - Date & Time of Evaluation Date of Evaluation: 05/31/17 Time of Evaluation: 17:03 - Subjective Subjective: pt feels beter no seizer walking around no discomfort wants to go home lab wb[facility] cxray infiltrate Objective - Vital Signs/Intake and Output Vital Signs (last 24 hours): Temp Pulse Resp BP Pulse Ox 98.2 F 72 20 137/79 96 05/31/17 16:05 05/31/17 16:05 05/31/17 16:05 05/31/17 16:05 05/31/17 16:05 Intake and Output: 05/31/17 05/31/17 06:59 18:59 Intake Total 150 Balance 150 - Medications Medications: Current Medications Amlodipine Besylate (Norvasc) 10 mg PO DAILY [facility] Last Admin: 05/31/17 09:22 Dose: 10 mg Furosemide (Lasix) 40 mg IVP DAILY [facility] Last Admin: 05/31/17 09:22 Dose: 40 mg Ceftriaxone Sodium 2 gm/ (Sodium Chloride) 100 mls @ 100 mls/hr IVPB Q24H [facility] Last Admin: 05/30/17 18:26 Dose: 100 mls/hr Levetiracetam (Keppra) 1,000 mg PO BID [facility] Last Admin: 05/31/17 09:22 Dose: 1,000 mg Lorazepam (Ativan) 1 mg IVP Q6H PRN PRN Reason: Anxiety Metformin HCl (Glucophage Xr) 500 mg PO DAILY [facility] Last Admin: 05/31/17 09:22 Dose: 500 mg Rosuvastatin Calcium (Crestor) 5 mg PO HS [facility] Last Admin: 05/30/17 22:24 Dose: 5 mg Spironolactone (Aldactone) 25 mg PO DAILY [facility] Last Admin: 05/31/17 09:22 Dose: 25 mg - Labs Labs: 05/31/17 07:20 05/31/17 07:20 - Constitutional Appears: Non-toxic - Head Exam Head Exam: NORMAL INSPECTION - Eye Exam Eye Exam: Normal appearance Pupil Exam: NORMAL ACCOMODATION - ENT Exam ENT Exam: Mucous Membranes Moist - Neck Exam Neck Exam: Normal Inspection - Respiratory Exam Respiratory Exam: Decreased Breath Sounds - Cardiovascular Exam Cardiovascular Exam: REGULAR RHYTHM - GI/Abdominal Exam GI & Abdominal Exam: Normal Bowel Sounds - Rectal Exam Rectal Exam: NORMAL INSPECTION - Exam Exam: NORMAL INSPECTION - Extremities Exam Extremities Exam: Full ROM - Back Exam Back Exam: NORMAL INSPECTION - Neurological Exam Neurological Exam: Normal Gait Assessment and Plan - Assessment and Plan (Free Text) Assessment: seizer disorder lung infiltrat htn obesity Plan: hcontineu all med and f/u by
[2017-05-31] MEDS: cefTRIAXone 2 GM in Sodium Chloride 0.9% 100 ML IVPB SCH (17:41)
--- NOTE | 2017-06-01 19:26 | CARD ---
APPROVED REPORT EXAM: Two-dimensional and M-mode echocardiogram with Doppler and color Doppler. Other Information Quality : GoodRhythm : NSR INDICATION Dyspnea Congestive Heart Failure RISK FACTORS Hypertension Hyperlipidemia 2D DIMENSIONS LVOT Diameter2.2 (1.8-2.4cm) M-Mode DIMENSIONS RVDd2.77 (2.1-3.2cm)Left Atrium (MM)3.90 (2.5-4.0cm) IVSd1.02 (0.7-1.1cm)Aortic Root3.75 (2.2-3.7cm) LVDd5.35 (4.0-5.6cm)Aortic Cusp Exc.1.60 (1.5-2.0cm) PWd1.02 (0.7-1.1cm)FS (%) 46 % LVDs2.89 (2.0-3.8cm)LVEF (%)77 (>50%) Aortic Valve AoV Peak Mxjmdjbe882.3cm/sAoV VTI67.5cmAO Peak GR.36mmHg LVOT Peak Zsgmynby766.7cm/sLVOT VTI26.82cmAO Mean GR.20mmHg SHEILA (VMAX)1.61oq6KMQ (VTI)1.56cm2 Mitral Valve MV E Twvodamp05.9cm/sMV A Qxbsfwnz089.8cm/sE/A ratio0.7 TDI E/Lateral E'0.0E/Medial E'0.0 Tricuspid Valve TR Peak Nyzrehxo994uq/sTR Peak Gr.55ehVaOQJA23mxPr LEFT VENTRICLE The left ventricle is normal size. There is normal left ventricular wall thickness. The Ejection Fraction is >70%. There is normal LV segmental wall motion. Transmitral Doppler flow pattern is Grade I-abnormal relaxation pattern. RIGHT VENTRICLE The right ventricle is normal size. The right ventricular systolic function is normal. ATRIA The left atrium size is normal. The right atrium size is normal. The interatrial septum is intact with no evidence for an atrial septal defect. AORTIC VALVE The aortic valve is mildly calcified. The aortic valve is tri-cuspid. There is mild aortic regurgitation. There is mild valvular aortic stenosis. Calculated aortic valve area is 1.6 cm2 with maximum pressure gradient of 40 mmHg and mean pressure gradient of 20 mmHg. MITRAL VALVE The mitral valve is normal in structure. Mitral regurgitation is mild. TRICUSPID VALVE The tricuspid valve is normal in structure. There is mild tricuspid regurgitation. Right ventricular systolic pressure is estimated at 35 mmHg. There is mild pulmonary hypertension. PULMONIC VALVE The pulmonary valve is normal in structure. There is mild pulmonic valvular regurgitation. GREAT VESSELS The aortic root is normal size. The aortic root displays mild sclerocalcific changes of the aortic root. The IVC is normal in size and collapses >50% with inspiration. PERICARDIAL EFFUSION There is no pericardial effusion. <Conclusion> The left ventricle is normal size. There is normal left ventricular wall thickness. The Ejection Fraction is >70%. Transmitral Doppler flow pattern is Grade I-abnormal relaxation pattern. There is mild valvular aortic stenosis. Calculated aortic valve area is 1.6 cm2 with maximum pressure gradient of 40 mmHg and mean pressure gradient of 20 mmHg. The aortic valve is mildly calcified. The aortic valve is tri-cuspid. There is mild aortic regurgitation. Mitral regurgitation is mild. There is mild tricuspid regurgitation. Right ventricular systolic pressure is estimated at 35 mmHg. There is mild pulmonary hypertension. The aortic root is normal size. The aortic root displays mild sclerocalcific changes of the aortic root.
--- NOTE | 2017-06-02 06:27 | CARD ---
APPROVED REPORT EKG Measurement Heart [id number] <Conclusion> Sinus rhythm with premature supraventricular complexes Cannot rule out Anterior infarct, age undetermined Abnormal ECG
--- NOTE | 2017-06-02 08:28 | PQF SEPSIS ---
This form is a permanent part of the medical record Dr. Chan, Please clarify if this patient was treated for Sepsis. Clarification of your documentation is requested to better reflect the severity of illness and intensity of treatment of your patient. Indicators present pt has lecocytosis and patchy infiltrate in lunng possible pnumonia [] Temp < 96.8 or > 100.4 (X] WBC count > 12,000/mm3 or <000/mm3 or 10% immature neutrophils [] Heart Rate > 90 [] Respiratory Rate > 20 [] Fever or hypothermia [] Chills [] Positive blood cultures [] Hypotension [] Metabolic acidosis (Elevated lactate level, anion gap or reduced blood pH) [] Acute confusion /Altered Mental Status [] Shock [] Other: [] Location in the medical record that reflects the above clinical findings: [Dr. Maxwell Consult. ] Treatment Provided: [] PHYSICIAN'S RESPONSE Based on your medical judgment of the clinical indicators outlined above, are you treating this patient for a known or suspected: [] Sepsis / Septicemia Please specify organism if known [] [] SIRS (Systemic Inflammatory Response Syndrome) [] Severe Sepsis (Sepsis with Associated Organ Dysfunction) [] Fever of Unknown Origin [] Other, please indicate: [] [] If Unable to Determine, please check the box, sign and date. Present On Admission (POA) Indicator: [] Present at the time of admission [] Not present at the time of admission [] Clinically Undetermined In responding to this query, please exercise your independent professional judgment. The fact that a question is asked does not imply that any particular answer is desired or expected. Thank you for your clarification on this documentation. If you have any questions please call:[ ] * Thank you, [ ] obstetrics teacher MAXIMILIAN
== END 2017-05-31 19:00 | disposition home or self-care (01) | DRG 100 ==
LOC: C.ER 04:42 → SUPCPDRO 04:42 → C.9E 06:30 → C.6T 07:36
PROVIDERS: ADMIT Internal Medicine; ATTEND Internal Medicine
DX: G40.409 Other generalized epilepsy and epileptic syndromes, not intractable, without status epilepticus (principal); J18.9 Pneumonia, unspecified organism; I11.0 Hypertensive heart disease with heart failure; I50.32 Chronic diastolic (congestive) heart failure; E11.9 Type 2 diabetes mellitus without complications; E78.5 Hyperlipidemia, unspecified; E78.00 Pure hypercholesterolemia, unspecified; E66.9 Obesity, unspecified; I25.10 Atherosclerotic heart disease of native coronary artery without angina pectoris; Z79.84 Long term (current) use of oral hypoglycemic drugs; Z79.899 Other long term (current) drug therapy; Z86.73 Personal history of transient ischemic attack (TIA), and cerebral infarction without residual deficits; Z68.26 Body mass index [BMI] 26.0-26.9, adult

== ENCOUNTER 2017-08-24 13:50 | Emergency (ER) | payer MEDICARE ==
[2017-08-24 13:54] VITALS: BMI 26.6
[2017-08-24 13:59] VITALS: RESP 18
--- NOTE | 2017-08-24 14:54 | RAD ---
PROCEDURE: Radiographs of the Chest and Left Ribs. HISTORY: rib injury, pain COMPARISON: Chest x-ray 05/29/2017. TECHNIQUE: Frontal radiograph of the chest and multiple oblique radiographs of the left ribs were obtained. FINDINGS: LEFT RIBS: No fracture or focal lesion visualized. LUNGS: Clear. PLEURA: No pneumothorax or pleural fluid. CARDIOVASCULAR: Normal sized heart. No pulmonary vascular congestion. OTHER FINDINGS: None. IMPRESSION: Unremarkable radiographs of the chest and left ribs. No left rib fracture.
--- NOTE | 2017-08-24 14:57 | RAD ---
PROCEDURE: Right Foot Radiographs. HISTORY: foot injury. pain to heel COMPARISON: None. FINDINGS: BONES: No fracture. Incidentally noted plantar calcaneal spur. JOINTS: Normal. SOFT TISSUES: Normal. OTHER FINDINGS: None. IMPRESSION: Plantar calcaneal spur. Otherwise unremarkable examination.
--- NOTE | 2017-08-24 15:07 | C.PDOC ---
History Of Present Illness 77 y/o male presents to ED with c/o left sided rib pain and right foot pain status post fall from approximately 6 feet just prior to arrival. Patient states he fell while coming down off of the roof via a ladder, hitting his ribs on the ladder, and notes that his foot struck the wooden deck. Denies head trauma or LOC. Patient otherwise denies any other pain or injuries. Denies SOB, chest pain, nausea, vomiting, new weakness, or new numbness. - HPI Time Seen by Provider: 08/24/17 14:09 Chief Complaint (Nursing): Trauma History Per: Patient History/Exam Limitations: no limitations Injury Occurred (Timing): Just Before Arrival Location Of Injury: Right: Foot Recent travel outside of the [place]: No Past Medical History Reviewed: Historical Data, Nursing Documentation, Vital Signs Vital Signs: Last Vital Signs Temp 98.2 F 08/24/17 15:55 Pulse 78 08/24/17 15:55 Resp 18 08/24/17 15:55 BP 158/85 H 08/24/17 15:55 Pulse Ox 96 08/24/17 16:55 - Medical History PMH: HTN, Hypercholesterolemia, Seizures (last episode was last week) Family History: States: Unknown Family Hx - Social History Hx Alcohol Use: No Hx Substance Use: No - Immunization History Hx Tetanus Toxoid Vaccination: No Hx Influenza Vaccination: Yes Hx Pneumococcal Vaccination: Yes Review Of Systems Except As Marked, All Systems Reviewed And Found Negative. Musculoskeletal: Positive for: Foot Pain (right), Other (left sided ribs pain). Negative for: Neck Pain Skin: Negative for: Rash Neurological: Negative for: Weakness, Numbness, Headache, Dizziness Physical Exam - Physical Exam Appears: Non-toxic, No Acute Distress Skin: Normal Color, Warm, Dry Head: Atraumatic, Normacephalic Eye(s): bilateral: Normal Inspection, PERRL, EOMI Oral Mucosa: Moist Neck: Normal ROM, No Midline Cervical Tenderness, No Paracervical Tenderness, Supple Chest: Symmetrical, No Deformity, Tenderness (left sided anterior ribs), No Ecchymosis Cardiovascular: Rhythm Regular Respiratory: Normal Breath Sounds (CTA bilaterally), No Accessory Muscle Use, No Rales, No Rhonchi, No Wheezing Gastrointestinal/Abdominal: Soft, No Tenderness, No Guarding, No Rebound Back: Normal Inspection, No Vertebral Tenderness Extremity: Normal ROM, Tenderness (right medial ankle/heel), Capillary Refill ( < 2 sec.), No Deformity, Other (mild ecchymosis to right heel) Pulses: Left Dorsalis Pedis: Normal, Right Dorsalis Pedis: Normal Neurological/Psych: Oriented x3, Normal Motor, Normal Sensation ED Course And Treatment O2 Sat by Pulse Oximetry: 96 (RA) Pulse Ox Interpretation: Normal - Other Rad RIBS and CHEST XR LEFT X-Ray: Viewed By Me, Read By Radiologist Interpretation: IMPRESSION: Unremarkable radiographs of the chest and left ribs. No left rib fracture. RIGHT FOOT XR X-Ray: Viewed By Me, Read By Radiologist Interpretation: IMPRESSION: Plantar calcaneal spur. Otherwise unremarkable examination. Progress Note: Treated with Tylenol. R foot and L rib series x-rays ordered and reviewed; negative for fracture. Physical therapy eval done in the ER. On re- evaluation, patient reports improvement of pain, and is in no acute distress. Advised follow up with PMD/clinic within 1-2 days. Medical Decision Making Medical Decision Making: Physical therapy has given the patient a walker and anjali wrap was applied to the leg. Disposition - Disposition Referrals: Lauren Paige MD [Staff Provider] - Disposition: HOME/ ROUTINE Disposition Time: 15:07 Condition: GOOD Additional Instructions: Follow up with the Orthopedist 1-2 days. Return if worsened. Instructions: Ankle Sprain (ED), Rib Contusion (ED) Forms: [facility] (Pashto) - Clinical Impression Clinical Impression: Rib contusion, Foot contusion - PA / PSYCHOLOGY DEPARTMENT CHAIR / Resident Statement MD/DO has reviewed & agrees with the documentation as recorded. - Scribe Statement The provider has reviewed the documentation as recorded by the Scribe SM All medical record entries made by the Scribe were at my direction and personally dictated by me. I have reviewed the chart and agree that the record accurately reflects my personal performance of the history, physical exam, medical decision making, and the department course for this patient. I have also personally directed, reviewed, and agree with the discharge instructions and disposition.
[2017-08-24 16:10] VITALS: BP 158/85; PULSE 78; TEMP 98.2
[2017-08-24 16:46] VITALS: O2SAT 96
== END 2017-08-24 16:05 | disposition home or self-care (01) ==
LOC: C.ER 13:50
DX: S20.219A Contusion of unspecified front wall of thorax, initial encounter (principal); S90.31XA Contusion of right foot, initial encounter; W11.XXXA Fall on and from ladder, initial encounter; E78.00 Pure hypercholesterolemia, unspecified; I10 Essential (primary) hypertension
CPT/HCPCS: 71101; 73630; 97116; 97161; 99285; G8978; G8979; G8980

== ENCOUNTER 2017-12-11 10:05 | Emergency (ER) | payer MEDICARE ==
[2017-12-11 10:05] VITALS: BMI 26.6
--- NOTE | 2017-12-11 10:17 | C.PDOC ---
History Of Present Illness LIMITED DUE TO CLIN COND HX PER FAMILY, EMS 77-YEAR-OLD MALE IS BROUGHT TO THE EMERGENCY DEPARTMENT BY FAMILY AND EMS W COMPLAINTS OF BREAKTHROUGH SZ X 4 [employer]. STATES PT COMPLIANT W JANET, GAVE 2 EXTRA DOSES [employer] AFTER INITIAL BREAKTHROUGH SZ. STATES DRANK ETOH LAST NIGHT @ 2100 "THAT USUALLY TRIGGERS HIS SEIZURE", "HE DOESNT DRINK OFTEN". STATES PT ALWAYS COMBATIVE AND AGITATED AFTER SEIZURES. NO TRAUMA, RECENT ILLNESS. PER EMS, LAST SZ 40 MINS [employer] ROS UTO EXAM AGITATED, POST ICTAL. HEENT ATRAUM NEURO NO SZ ACTIVITY, NO FOCAL DEF. PSYCH AGITATED, CURSING BUT INTERACTIVE W STAFF. REMIANDER NEG Time Seen by Provider: 12/11/17 10:09 History Per: Family History/Exam Limitations: clinical condition Past Medical History Reviewed: Historical Data, Nursing Documentation, Vital Signs Vital Signs: Last Vital Signs Temp Pulse 78 12/11/17 15:59 Resp 16 12/11/17 15:59 BP 111/71 12/11/17 15:59 Pulse Ox 96 12/11/17 15:59 - Medical History PMH: HTN, Hypercholesterolemia, Seizures (last episode was last week) Family History: States: No Known Family Hx - Social History Hx Alcohol Use: No Hx Substance Use: No - Immunization History Hx Tetanus Toxoid Vaccination: No Hx Influenza Vaccination: Yes Hx Pneumococcal Vaccination: Yes Review Of Systems Review Of Systems: ROS cannot be obtained secondary to pt's inabilty to answer questions. Neurological: Positive for: Seizures Physical Exam - Physical Exam Appears: Non-toxic, No Acute Distress (AGITATED, POST ICTAL.), Other (AGITATED, CURSING BUT INTERACTIVE W STAFF.) Skin: Normal Color, Warm, Dry, No Rash Head: Atraumatic, Normacephalic Eye(s): bilateral: Normal Inspection, PERRL, EOMI Nose: Normal Oral Mucosa: Moist Tongue: No Laceration Lips: Normal Appearing Neck: Normal ROM Chest: Symmetrical Cardiovascular: Rhythm Regular, No Murmur Respiratory: Normal Breath Sounds, No Accessory Muscle Use Gastrointestinal/Abdominal: Soft, No Tenderness Extremity: Normal ROM Neurological/Psych: Other (NO SZ ACTIVITY, NO FOCAL DEF. ) ED Course And Treatment - Laboratory Results Result Diagrams: 12/11/17 11:11 12/11/17 11:11 Progress - Re-Evaluation Re-evaluation Note: 12/11/17 11:52 S/P ATIVAN SLEEPING, NO RECUR SZ SINCE INITIAL EVAL. VSS. 12/11/17 16:59 AO3 STEADY GAIT, CLEAR SPEECH NO ACUTE POST ICTAL STATE. FAMILY @ BEDSIDE, STATES COMFORTABLE TAKING PT HOME. - Data Reviewed Data Reviewed: Lab, Old records - Critical Care Citical Care: Excluding Proc Time Critical Care Time: 90 minutes - Continuity of Care Discussed patient case with:: Patient, Family-HIPPA compliant Disposition Counseled Patient/Family Regarding: Studies Performed, Diagnosis, Need For Followup, Rx Given - Disposition Referrals: YOUR,NEUROLOGIST [Other] Disposition: HOME/ ROUTINE Disposition Time: 17:00 Condition: IMPROVED Prescriptions: LORazepam [Ativan] 2 mg PO PRN PRN #6 tab PRN Reason: Seizure Activity Instructions: Epilepsy in Adults - Clinical Impression Clinical Impression: Breakthrough seizure - Scribe Statement The provider has reviewed the documentation as recorded by the Scribe (Tne Paige) All medical record entries made by the Scribe were at my direction and personally dictated by me. I have reviewed the chart and agree that the record accurately reflects my personal performance of the history, physical exam, medical decision making, and the department course for this patient. I have also personally directed, reviewed, and agree with the discharge instructions and disposition.
[2017-12-11 11:22] LABS: BASO # 0.2 K/uL (0.0-0.2); BASO % 1.4 % (0.0-2.0); EOS # 0.1 K/uL (0.0-0.7); HEMOGLOBIN 11.5 g/dL (12.0-18.0); LYMPH # 1.6 K/uL (1.0-4.3); LYMPH % 11.1 % (20.0-40.0); MEAN CELL VOLUME 88.9 fL (80.0-94.0); MEAN CORPUSCULAR HEMOGLOBIN 30.2 pg (27.0-31.0); MEAN PLATELET VOLUME 8.8 fL (7.2-11.7); MONO # 1.6 K/uL (0.0-0.8); MONO % 11.1 % (0.0-10.0); NEUT # 10.8 K/uL (1.8-7.0); NEUT % 75.4 % (50.0-75.0); NRBC % 0.2 % (0.0-2.0); RBC 3.81 Mil/uL (4.40-5.90); RED CELL DISTRIBUTION WIDTH 18.8 % (11.5-14.5); WHITE BLOOD COUNT 14.3 K/uL (4.8-10.8)
[2017-12-11 11:47] LABS: CALCIUM 9.2 mg/dl (8.6-10.4); GFR AFRICAN-AMERICAN > 60; GFR NON-AFRICAN AMERICAN 54
[2017-12-11 11:49] LABS: BLOOD UREA NITROGEN 20 mg/dL (9-20)
[2017-12-11 12:34] VITALS: PULSE 78; RESP 16
[2017-12-11 15:59] VITALS: BP 111/71; O2SAT 96
[2017-12-15 17:19] LABS: LEVETIRACETAM 19.3 mcg/mL
== END 2017-12-11 17:14 | disposition home or self-care (01) ==
LOC: C.ER 10:05
DX: G40.909 Epilepsy, unspecified, not intractable, without status epilepticus (principal); I10 Essential (primary) hypertension; E78.00 Pure hypercholesterolemia, unspecified
CPT/HCPCS: 80048; 80299; 82948; 85025; 96372; 99285; G0480; J2060